=== PATIENT | male | born 2000 | race African-American/Black ===

== ENCOUNTER 2020-11-30 00:34 | Emergency (ER) | payer OTHER ==
[~2020-11-30] VITALS: Ht 182.9 cm; Wt 63.5 kg
[2020-11-30 01:52] LABS: HEMATOCRIT 45.8 % (42.0-52.0); HEMOGLOBIN 15.7 gm/dL (14.0-18.0); MCH 31.3 pg (26.0-34.0); MCHC 34.2 g/dL (28.0-37.0); MCV 91.5 fL (80.0-100.0); RDW 12.9 % (10.5-14.5); WBC 6.9 thou/uL (4.0-11.0)
[2020-11-30 02:01] LABS: CALCIUM 9.2 mg/dL (8.5-10.1); CREATININE 1.1 mg/dL (0.7-1.3); POTASSIUM 3.4 mmol/L (3.5-5.1)
[2020-11-30 02:06] LABS: ALBUMIN 4.6 g/dL (3.4-5.0); DIRECT BILIRUBIN 0.3 mg/dL (<0.1-0.2); TOTAL PROTEIN 8.6 g/dL (6.4-8.2)
[2020-11-30 02:30] LABS: URINE BILIRUBIN NEGATIVE (Negative); URINE BLOOD TRACE (Negative); URINE CLARITY CLEAR; URINE COLOR YELLOW; URINE GLUCOSE-RANDOM* NEGATIVE (Negative); URINE KETONES TRACE (Negative); URINE LEUKOCYTES-REFLEX TRACE (Negative); URINE NITRITE-REFLEX NEGATIVE (Negative); URINE PROTEIN (DIPSTICK) NEGATIVE (Negative)
[2020-11-30 02:40] VITALS: BP 144/83
[2020-11-30] MEDS ORDERED: PHENERGAN 25 MG25 M1 PO (02:42)
[2020-11-30] MEDS ORDERED: TRANSDERM-SCOP1 EACH TRANSDERM (02:42)
== END 2020-11-30 02:45 | disposition home or self-care (01) ==
LOC: ER 00:34
PROVIDERS: Emergency Medicine
DX: R11.2 Nausea with vomiting, unspecified (principal); R10.13 Epigastric pain; F12.90 Cannabis use, unspecified, uncomplicated; J45.909 Unspecified asthma, uncomplicated

== ENCOUNTER 2021-02-16 15:50 | Emergency (ER) | payer OTHER ==
[~2021-02-16] VITALS: Ht 185.4 cm; Wt 65.8 kg
[~2021-02-16 15:50] MED LIST: PHENERGAN 25 MG25 M1 PO; TRANSDERM-SCOP1 EACH TRANSDERM
[2021-02-16 17:14] LABS: ABSOLUTE NEUTROPHILS 6.9 thou/uL (1.4-8.2); EOSINOPHILS 0.1 % (0.0-3.0); HEMATOCRIT 39.3 % (42.0-52.0); HEMOGLOBIN 13.5 gm/dL (14.0-18.0); LYMPHOCYTES 11.1 % (24.0-44.0); MCH 31.2 pg (26.0-34.0); MCHC 34.5 g/dL (28.0-37.0); MCV 90.5 fL (80.0-100.0); MONOCYTES 5.6 % (1.0-8.0); PLATELET COUNT 290 thou/uL (150-400); POLYS 82.2 % (36.0-66.0); RBC 4.34 mil/uL (4.50-6.00); RDW 13.5 % (10.5-14.5); WBC 8.4 thou/uL (4.0-11.0)
[2021-02-16 17:30] LABS: ALBUMIN 4.6 g/dL (3.4-5.0); POTASSIUM 3.7 mmol/L (3.5-5.1); TOTAL BILIRUBIN 0.5 mg/dL (0.2-1.0); TOTAL PROTEIN 8.7 g/dL (6.4-8.2)
[2021-02-16 17:31] LABS: CALCIUM 9.7 mg/dL (8.5-10.1)
[2021-02-16] MEDS ORDERED: ONDANSETRON HCL4 M2 PO (18:42)
[2021-02-16] MEDS ORDERED: PHENERGAN 25 MG25 M1 PO (18:53)
[2021-02-16 19:04] VITALS: BP 136/74
== END 2021-02-16 23:56 | disposition home or self-care (01) ==
LOC: ER 15:50
PROVIDERS: Emergency Medicine
DX: R11.2 Nausea with vomiting, unspecified (principal); F10.10 Alcohol abuse, uncomplicated; J45.909 Unspecified asthma, uncomplicated; Y90.9 Presence of alcohol in blood, level not specified; F12.90 Cannabis use, unspecified, uncomplicated

== ENCOUNTER 2021-02-19 08:47 | Emergency (ER) | payer OTHER ==
[~2021-02-19] VITALS: Ht 185.4 cm; Wt 65.8 kg
[~2021-02-19 08:47] MED LIST changes: +ONDANSETRON HCL4 M2 PO
[2021-02-19 09:32] LABS: ABSOLUTE NEUTROPHILS 5.2 thou/uL (1.4-8.2); BASOPHILS 1.1 % (0.0-2.0); EOSINOPHILS 0.3 % (0.0-3.0); MCH 31.9 pg (26.0-34.0); MCHC 35.4 g/dL (28.0-37.0); MCV 90.1 fL (80.0-100.0); MONOCYTES 5.8 % (1.0-8.0); PLATELET COUNT 291 thou/uL (150-400); POLYS 70.8 % (36.0-66.0); RBC 4.89 mil/uL (4.50-6.00); RDW 13.2 % (10.5-14.5); WBC 7.3 thou/uL (4.0-11.0)
[2021-02-19 09:35] LABS: HEMOGLOBIN 15.6 gm/dL (14.0-18.0)
[2021-02-19 09:48] LABS: CALCIUM 9.5 mg/dL (8.5-10.1); CREATININE 1.2 mg/dL (0.7-1.3)
[2021-02-19 09:55] LABS: POTASSIUM 3.7 mmol/L (3.5-5.1)
[2021-02-19] MEDS ORDERED: REGLAN 10 MG TA10 MG PO (09:58)
[2021-02-19] MEDS ORDERED: ZOFRAN ODT4 MG DISSOLVE (09:58)
[2021-02-19 10:28] VITALS: BP 120/82
== END 2021-02-19 10:32 | disposition home or self-care (01) ==
LOC: ER 08:47
PROVIDERS: Emergency Medicine
DX: R11.10 Vomiting, unspecified (principal); J45.909 Unspecified asthma, uncomplicated

== ENCOUNTER 2021-06-16 18:27 | Emergency (ER) | payer OTHER ==
[~2021-06-16] VITALS: Ht 185.4 cm; Wt 63.5 kg
[~2021-06-16 18:27] MED LIST changes: +REGLAN 10 MG TA10 MG PO; +ZOFRAN ODT4 MG DISSOLVE
[2021-06-16 18:30] VITALS: BP 137/76
== END 2021-06-16 19:30 | disposition home or self-care (01) ==
LOC: ER 18:27
DX: J06.9 Acute upper respiratory infection, unspecified (principal); Z20.822 Contact with and (suspected) exposure to COVID-19; R05.9 Cough, unspecified; J45.909 Unspecified asthma, uncomplicated